=== PATIENT | female | born 1980 | race Caucasian/White ===

== ENCOUNTER 2018-08-13 01:43 | Outpatient (CLI) | payer OTHER, SELFPAY ==
[2018-08-13 11:23] LABS: Abs Immature Grans 0.05 k/cumm (0.0-0.09); Absolute Basophil Count 0.02 k/cumm (0.0-0.2); Absolute Eosinophil Count 0.22 k/cumm (0.0-0.7); Absolute Lymphocyte Count 2.39 k/cumm (1.2-3.4); Absolute Monocyte Count 0.45 k/cumm (0.11-0.7); Absolute Neutrophil Count 6.23 k/cumm (1.2-6.7); Basophils % 0.2; Eosinophils % 2.4; HCT 35.1 % (36.0-46.0); HGB 12.3 g/dL (12.0-15.5); Immature Grans % 0.5; Lymphocytes % 25.5; Mean Corpuscular Hemoglobin 34.3 pg (27.0-33.0); Mean Corpuscular Volume 97.8 fL (80-95); Mean Platelet Volume 10.1 fL (8.0-11.0); Monocytes % 4.8; Neutrophils % 66.6; Platelet Count 240 x1000/uL (130-400); RBC 3.59 m/cumm (4.00-5.20); RBC Distribution Width 17.1 % (11.7-14.6); White Blood Cell Count 9.36 k/cumm (4.4-10.8)
[2018-08-13 12:02] LABS: C-Reactive Protein 0.24 mg/dL (0.0-0.3); Vitamin B12 365 pg/mL (193-986)
== END 2018-08-13 02:03 ==
PROVIDERS: PCP Nurse Practitioner Family; Visit Provider Emergency Medicine
DX: G43.009 Migraine without aura, not intractable, without status migrainosus (principal)
CPT/HCPCS: 36415; 82607; 85025; 86140

== ENCOUNTER 2018-09-11 00:22 | Outpatient (CLI) | payer OTHER, SELFPAY ==
--- NOTE | 2018-09-11 15:44 | DI.MRI_ITS ---
SYMPTOM/DIAGNOSIS: SEIZURE LIKE ACTIVITY, ATYPICAL MIGRAINE WITHOUT AURA, G43.009 BRAIN MRI: T 2 sagittal, T 1, T 2, FLAIR, diffusion and gradient echo axial as well as T 2 coronal sequences were performed. No intracranial hemorrhage, mass or infarct is seen. The ventricles are normal in size. The orbits, pituitary, sinuses and mastoid air cells are unremarkable. The vascular flow voids appear intact. IMPRESSION: Negative MRI of the brain.
== END 2018-09-11 00:42 ==
PROVIDERS: PCP Nurse Practitioner Family; Visit Provider Emergency Medicine
DX: G43.009 Migraine without aura, not intractable, without status migrainosus (principal)
CPT/HCPCS: 70551

== ENCOUNTER 2018-10-30 11:00 | Outpatient (CLI) | payer OTHER, SELFPAY | END 2018-10-30 11:20 | PROVIDERS: PCP Nurse Practitioner Family; Visit Provider Psychiatry & Neurology Neurology | DX: F41.9 Anxiety disorder, unspecified (principal); G43.109 Migraine with aura, not intractable, without status migrainosus; R40.4 Transient alteration of awareness | CPT/HCPCS: 99215 ==

== ENCOUNTER 2018-12-24 16:13 | Outpatient (REF) | payer OTHER, SELFPAY ==
--- NOTE | 2018-12-24 15:40 | PAPFT_PTH ---
PATIENT: Stephanie Blank LOC: [facility] U#:[id number] AGE/SX: 38/F ROOM: RE12/24/[address]: Reva Haddad : 1980 BED: DIS: 12/24/2018 SPEC #: [id number] RECD: 12/24/18 17:53 STATUS: GRACIE RECassia #: [id number] YONAS: 12/24/18 15:[address]: Reva Haddad DEPT: [facility] Cytology RECD BY: Renetta Montoya ENTERED: 12/24/18 17:53 SP TYPE: PAPFT ELODIA DR: Ledy Thompson, PROJ ENGINEER Tissues: 1 - CX/ENDOCX FOR PAP SMEARS Procedures: PAP THIN PREP/UVM Screening HPV DNA PROBE Comments: [id number]
== END 2018-12-24 16:33 ==
LOC: LBN 16:13
PROVIDERS: PCP Nurse Practitioner Family; Visit Provider Obstetrics & Gynecology Gynecology
DX: Z12.4 Encounter for screening for malignant neoplasm of cervix (principal); Z11.51 Encounter for screening for human papillomavirus (HPV)
CPT/HCPCS: 88142; 87624

== ENCOUNTER 2020-01-19 20:35 | Outpatient (REF) | payer OTHER, SELFPAY ==
[2020-01-19 21:33] LABS: Abs Immature Grans 0.01 k/cumm (0.0-0.09); Absolute Basophil Count 0.02 k/cumm (0.0-0.2); Absolute Eosinophil Count 0.16 k/cumm (0.0-0.7); Absolute Lymphocyte Count 2.99 k/cumm (1.2-3.4); Absolute Monocyte Count 0.44 k/cumm (0.11-0.7); Absolute Neutrophil Count 5.83 k/cumm (1.2-6.7); Basophils % 0.2; Eosinophils % 1.7; HGB 12.3 g/dL (12.0-15.5); Immature Grans % 0.1 %; Lymphocytes % 31.6; Mean Corp. HGB Concentration 34.2 g/dL (32.0-36.0); Mean Corpuscular Hemoglobin 33.1 pg (27.0-33.0); Mean Corpuscular Volume 96.8 fL (80-95); Mean Platelet Volume 11.2 fL (8.0-11.0); Monocytes % 4.7; Neutrophils % 61.7; Platelet Count 291 x1000/uL (130-400); RBC 3.72 m/cumm (4.00-5.20); RBC Distribution Width 16.6 % (11.7-14.6); White Blood Cell Count 9.45 k/cumm (4.4-10.8)
[2020-01-19 22:06] LABS: ALT 18 U/L (14-59); AST 14 U/L (15-37); Albumin 4.4 g/dL (3.4-5.0); Alkaline Phosphatase 60 U/L (46-116); Anion Gap 11.3 mmol/L (3-11); BUN 9 mg/dL (7-18); CO2 24.7 mmol/L (21.0-32.0); CREATININE 0.75 mg/dL (0.55-1.02); Calcium 9.2 mg/dL (8.5-10.1); Calculated LDL 46 mg/dL (<100); Chloride 104 mmol/L (98-107); Cholesterol 133 mg/dL (<200); Folate 11.6 ng/mL (8.6-20.0); Glucose 84 mg/dL (74-106); HDL Cholesterol 28 mg/dL (40-60); Sodium 140 mmol/L (136-145); Total Protein 7.3 g/dL (6.4-8.2); Triglyceride 299 mg/dL (<150); Vitamin B12 268 pg/mL (193-986)
== END 2020-01-19 20:55 ==
LOC: LBN 20:35
PROVIDERS: PCP Nurse Practitioner Family; Visit Provider Nurse Practitioner Family
DX: Z00.00 Encounter for general adult medical examination without abnormal findings (principal); D53.9 Nutritional anemia, unspecified
CPT/HCPCS: 80053; 80061; 82607; 82746; 85025

== ENCOUNTER 2020-05-31 08:33 | Emergency (ER) | payer OTHER, SELFPAY ==
[2020-05-31 08:38] VITALS: BP 106/48; PULSE 91; TEMP 36.7; O2SAT 96
--- NOTE | 2020-05-31 08:45 | DI.US_ITS ---
EXAM: US LOWER EXTREMITY VENOUS RT CLINICAL HISTORY: trauma, increasing pain, r/o DVT TECHNIQUE: Right lower extremity venous ultrasound performed using grayscale, color-flow, and spectr al Doppler analysis. COMPARISON: No exams were available for comparison FINDINGS: The right common femoral, femoral and popliteal veins demonstrate normal compressibility, augmentatio n, and color Doppler. The posterior tibial veins are patent. The saphenofemoral junction is unremark able. There is no evidence of a Ortega cyst. The soft tissues are unremarkable. IMPRESSION: No DVT. DATA REPOSITORY:
--- NOTE | 2020-05-31 08:45 | DI.RAD_ITS ---
EXAM: XR TIB/FIB RT CLINICAL HISTORY: trauma, anterior tibia pain. TECHNIQUE: 2D digital imaging was performed. COMPARISON: No exams were available for comparison FINDINGS: BONES: No acute fracture is present. No bony destructive lesion is seen. Visualized portion of knee a nd ankle joints are unremarkable. SOFT TISSUE: Normal. IMPRESSION: Unremarkable radiographs of the right tibia and fibula. DATA REPOSITORY: RADIATION DOSE DELIVERED:
--- NOTE | 2020-05-31 08:47 | ED.GENADUL_ITS ---
Discharge Plan Disposition Patient Disposition: HOME Condition: Stable Discharge Details Clinical Impression: Leg wound, right Primary Care Provider: Ledy Thompson ED Provider: Winifred Kaufman Home Meds and New Rx's Prescriptions: New doxycycline hyclate 100 mg tablet 100 mg PO BID Qty: 19 RF: 0 No Action nicotine 14 mg/24 hr patch 24 hour 14 mg Transdermal DAILY Qty: 90 RF: 4 Mirena 20 mcg/24 hours (5 yrs) 52 mg intrauterine device 1 device IY ONCE RF: 0 cyanocobalamin (vitamin B-12) 1,000 mcg capsule 1,000 mcg PO DAILY Qty: 90 RF: 4 folic acid 1 mg tablet 1 mg PO DAILY Qty: 90 RF: 4 Discharge Instructions Instructions: Acute Wounds (ED) Additional Instructions: Please return immediately to the emergency department if you develop any new or worsening symptoms, if your condition does not improve as expected, or if you become otherwise concerned. It is extremely important that you call soon as possible to make an appointment to be seen in follow-up for this visit by your primary care doctor. Referrals: Ledy Thompson, BIBI [Primary Care Provider] - Discharge Data Discharge Date/Time-TO BE ENTERED AT DEPARTURE: 05/31/20 10:30 Medical Decision Making Stephanie Blank is a 39-year-old woman without reported history of major medical problems who presented to the emergency department with right lower leg pain worsening since sustaining injury from impact to corner of one sandbox 5 days ago. On exam patient is well and nontoxic-appearing. Significant tenderness palpation of the anterior midshaft tibia and area skin wound. Full range of motion knee and ankle. Concern for possible fracture, DVT vs contusion. Possible mild early cellulitis. Exam/history is not consistent with osteomy elitis, myositis, sepsis, compartment syndrome, significant injury of the right ankle/foot/knee/femur/hip. Plan for x-rays, ultrasound. X-rays and ultrasound negative. Plan for doxycycline. I had a lengthy discussion with Patient regarding return to emergency department precautions, home care, and importance of outpatient follow-up. Pt verbalizes understanding of the plan and is amenable. Patient discharged to home with clear plan for outpatient follow-up. All questions were answered. Disposition decision was made weighing the risks and benefits of hospitalization versus outpatient treatment, the risk for further decompensation, and the patient's wishes. Medical Records Medical records reviewed: Yes I reviewed the patient's medical records. Imaging Data Radiologic Study: Attestation: I personally reviewed and interpreted this imaging study as follows: Radiologist's impression: EXAM: XR TIB/FIB RT CLINICAL HISTORY: trauma, anterior tibia pain. TECHNIQUE: 2D digital imaging was performed. COMPARISON: No exams were available for comparison FINDINGS: BONES: No acute fracture is present. No bony destructive lesion is seen. Visualized portion of knee and ankle joints are unremarkable. SOFT TISSUE: Normal. IMPRESSION: Unremarkable radiographs of the right tibia and fibula. EXAM: US LOWER EXTREMITY VENOUS RT CLINICAL HISTORY: trauma, increasing pain, r/o DVT TECHNIQUE: Right lower extremity venous ultrasound performed using grayscale, color-flow, and spectral Doppler analysis. COMPARISON: No exams were available for comparison FINDINGS: The right common femoral, femoral and popliteal veins demonstrate normal compressibility, augmentation, and color Doppler. The posterior tibial veins are patent. The saphenofemoral junction is unremarkable. There is no evidence of a Ortega cyst. The soft tissues are unremarkable. IMPRESSION: No DVT. HPI General Mode of arrival: ambulatory . Date/Time Provider Initiated Documentation: 05/31/20 08:35 . Limitations to Documentation: no limitations . Information obtained by: patient, RN notes reviewed and old records reviewed . HPI Narrative: Stephanie Blank is a is a 39-year-old woman without reported history of major medical problems who presents to the emergency department with right lower leg pain. Patient reports that 5 days ago she was chasing her puppy outside in her yard and sustained an injury to the right lower leg. Patient reports that she was running downhill when she hit her right lower leg on the corner of her daughter's wooden sandbox. Patient reports that she fell to the ground at the time, but did not have injury other than to the right lower leg. She did not hit her head, no loss of consciousness. Patient reports that she has pain at the site of the wound, and pain that radiates down her moore. Patient reports that pain has been worsening since the time of the injury. She has been bearing weight on the right leg, which increases pain. She denies any other pain. She denies drainage from skin wound. No fever, cough, shortness of breath, vomiting, diarrhea, numbness, weakness. No other skin wound. Patient reports that she feels otherwise well and in her usual state of health. Related Data Home Medications Medication Instructions Recorded Confirmed levonorgestrel 20 mcg/24 hours (6 1 device IY ONCE 12/23/18 05/31/20 yrs) 52 mg intrauterine device nicotine 14 mg/24 hr daily 14 mg TRANSDERMAL DAILY #90 each 01/19/20 05/31/20 transdermal patch cyanocobalamin (vitamin B-12) 1,000 mcg PO DAILY #90 cap 01/22/20 05/31/20 1,000 mcg capsule folic acid 1 mg tablet 1 mg PO DAILY #90 tab 01/22/20 05/31/20 doxycycline hyclate 100 mg PO BID #19 tab 05/31/20 Previous Rx's Medication Instructions Recorded nicotine 14 mg/24 hr daily 14 mg TRANSDERMAL DAILY #90 each 01/19/20 transdermal patch cyanocobalamin (vitamin B-12) 1,000 mcg PO DAILY #90 cap 01/22/20 1,000 mcg capsule folic acid 1 mg tablet 1 mg PO DAILY #90 tab 01/22/20 doxycycline hyclate 100 mg PO BID #19 tab 05/31/20 Allergies Allergy/AdvReac Type Severity Reaction Status Date / Time amoxicillin Allergy vomiting/hi Unverified 05/31/20 08:45 ves Penicillins Allergy familial Unverified 05/31/20 08:45 reaction bupropion HCl AdvReac Unknown Unverified 05/31/20 08:45 [From Wellbutrin] hydrocodone bitartrate AdvReac Nausea Unverified 05/31/20 08:45 [From Vicodin] General Stated Complaint: Orthopedic SHANA: 3 Review of Systems Narrative: Constitutional: denies fevers Eyes: denies eye pain ENT: denies ear pain, dental pain, sore throat Cardiovascular: denies chest pain, edema Respiratory: denies SOB, cough GI: denies abdominal pain, vomiting, diarrhea : denies flank pain MSK: denies back pain, neck pain, arthralgias, myalgias Skin: Reports skin wound as per HPI Neuro: denies headaches, numbness, weakness, reports intermittent tingling in right toes PENDING SALE TO [facility] Medical History (Updated 05/31/20 @ 10:18 by Winifred Kaufman MD) Abnormal Papanicolaou smear of cervix with positive human papilloma virus (HPV) test 2012 ASCUS + HPV. Colpo directed bx CIN1. 05/2014 Colpo CIN1. 2014 ASCUS + HPV. 09/3014 colpo directed bx - benign. 08/2015 Nl Pap. + HR HPV. 10/20/16 colpo directed bx NING 1. 2017. Nl Pap/Neg HPV. Cigarette smoker Depressive disorder Generalized anxiety disorder IUD (intrauterine device) in place (09/21/15) Mirena IUD inserted 09/21/15 String short. Verified by office hysteroscopy Macrocytic anemia [place] [facility] [place] Needs chronic B12 replacement. Migraine headache with aura Splenomegaly Incidental finding on CT, mild, asymptomatic Vitamin B 12 deficiency Surgical History History of section History of hysteroscopy (~2010) For IUD retrieval S/P cholecystectomy (11/28/16) Family History Mother Hyperlipidemia Hypertension Cervical cancer Father No problems noted. Brother Hyperlipidemia Stroke Hypertension Brother No problems noted. Son Asthma Daughter No problems noted. Maternal Grandfather Alcohol abuse Stroke Heart disease Maternal Grandmother Colon cancer Alcohol abuse Hypertension Hyperlipidemia Type 2 diabetes mellitus Paternal Grandfather Alcohol abuse Paternal Grandmother Stroke Neoplasm Unknown type Social History Smoking/Tobacco Use Status: Current-Occasional Tobacco Type: cigarettes Smoking risk assessment performed?: Yes Alcohol Intake: current Alcohol Intake frequency: holidays/special occasions only Drug use: Never Substance use type: does not use Household members: children and other Details: Tammy Benjamin (employed [employer]) S - Phu, Lashanda Goldstein Housing: house Number of Children: 2 current occupation: [employer] at Pets and animals: Yes Pets and animals: cat(s) and dog(s) What type of physical activity do you participate in: none Special carlos eduardo needs: No Seatbelt use: always Do you feel safe at home: Yes Do you feel safe in your relationship?: Yes Additional Social history: 2005. PCD twin delivery. F - anacephalic Airam. shortly after . Viable twin 'Phu'. 2013. [facility] Dayami Goldstein Female Reproductive History Menstrual control method: progestin IUCD (2016) History History 2 Para Hx # Term Pregnancies 2 Multiple births Hx # Pregnancies Ectopic pregnancies AB induced Hx Number of Living Children 2 AB spontaneous Exam Narrative Exam Narrative: Constitutional: well and [id number], pleasant, conversing normally HENT: head atraumatic/normocephalic/normal inspection, mucous membranes moist Eyes: conjunctiva normal, sclera normal, pupils 3mm b/l Neck: no stridor, normal ROM, trachea midline Resp: normal work of breathing, speaking in full sentences Cardio: normal rate, normal rhythm Skin: warm, dry, normal color, no rash Neuro: alert, not altered, grossly non-focal, normal tone Ext: no edema, right anterior lower leg with 4 cm skin wound over the mid shaft tibia with central mild purulence, no drainage, no surrounding erythema, significant bony tenderness palpation of the tibia surrounding wound without crepitus or induration, no posterior calf tenderness to palpation, compartments soft, full range of motion right ankle and knee, DP pulse intact, sensation right toes and foot intact Psych: normal mood, normal affect, normal behavior Course Vital Signs Vital signs: Vital Signs Temperature 36.7 C 05/31/20 08:38 Pulse 91 H 05/31/20 08:38 Blood Pressure 106/48 L 05/31/20 08:38 Pulse Oximetry 96 05/31/20 08:38 Temperature 36.7 C 05/31/20 08:38 Temperature Source Temporal Artery Scan 05/31/20 08:38 Pulse 91 H 05/31/20 08:38 Respiratory Effort Non-Labored 05/31/20 08:43 Blood Pressure 106/48 L 05/31/20 08:38 Blood Pressure Position Sitting 05/31/20 08:38 Pulse Oximetry 96 05/31/20 08:38 Oxygen Delivery Method Room Air 05/31/20 08:38 Oxygen Flow Rate 0 05/31/20 08:38 Pain Level 5 05/31/20 08:38
[2020-05-31] MEDS: Doxycycline Hyclate 100 MG CAP PO (10:13)
[2020-05-31] MEDS: Bacitracin 1 PACKET TP (10:21)
== END 2020-05-31 10:30 | disposition home or self-care (01) ==
PROVIDERS: Emergency Provider Student in an Organized Health Care Education/Training Program; PCP Nurse Practitioner Family
DX: S81.811A Laceration without foreign body, right lower leg, initial encounter (principal); W22.09XA Striking against other stationary object, initial encounter
CPT/HCPCS: 90471; 99284; 73590; 93971

== ENCOUNTER 2020-11-29 02:44 | Outpatient (CLI) | payer OTHER, SELFPAY ==
[2020-11-29 11:44] LABS: Source Nasal/Nares
[2020-11-29 21:13] LABS: COVID-19 PCR Negative (Negative)
== END 2020-11-29 02:45 | disposition home or self-care (01) ==
LOC: LBO 02:44
PROVIDERS: PCP Nurse Practitioner Family; Visit Provider Obstetrics & Gynecology Gynecology
DX: Z20.822 Contact with and (suspected) exposure to COVID-19 (principal); Z01.818 Encounter for other preprocedural examination
CPT/HCPCS: 87635

== ENCOUNTER 2020-11-29 03:18 | Outpatient (CLI) | payer OTHER, SELFPAY ==
[2020-11-29 09:26] LABS: HCT 34.3 % (36.0-46.0); HGB 11.9 g/dL (11.2-15.7); MCH 33.4 pg (27.0-33.0); MCHC 34.7 % (32.0-36.0); MCV 96.3 fL (80-95); Platelet Count 212 10^3/uL (130-400); RBC 3.56 10^6/uL (3.93-5.22); RDW 16.8 % (11.7-14.6); RDW-SD 59.1 fL
== END 2020-11-29 03:19 | disposition home or self-care (01) ==
LOC: LBO 03:18
PROVIDERS: PCP Nurse Practitioner Family; Visit Provider Obstetrics & Gynecology Gynecology
DX: Z97.5 Presence of (intrauterine) contraceptive device (principal); Z01.818 Encounter for other preprocedural examination; Z01.812 Encounter for preprocedural laboratory examination
CPT/HCPCS: 36415; 85027; 86850; 86900; 86901

== ENCOUNTER 2020-12-01 08:13 | Day surgery (SDC) | payer OTHER, SELFPAY ==
[2020-12-01 08:32] VITALS: BP 92/56; PULSE 77; RESP 18; TEMP 36.7; O2SAT 98
--- NOTE | 2020-12-01 08:42 | ANES.PREOP_ITS ---
General Info Date of Service Date Performed: 12/01/20 Height: 5 ft Weight: 78.7 kg Body Mass Index (BMI): 33.8 Surgical Procedure: Operation Date: 12/01/20 10:10 Proposed Procedures Side Surgeon p HYSTEROSCOPIC RETRIVAL OF IUD/insertion of IUD Reva Haddad MD Meds Allergies and Home Medications Allergies Allergy/AdvReac Type Severity Reaction Status Date / Time amoxicillin Allergy vomiting/hi Unverified 12/01/20 08:42 ves Penicillins Allergy familial Unverified 12/01/20 08:42 reaction hydrocodone bitartrate AdvReac Severe Nausea Unverified 12/01/20 08:42 [From Vicodin] bupropion HCl AdvReac Unknown Other (See Unverified 12/01/20 08:42 [From Wellbutrin] Comment) Home Medication Medication Instructions Recorded levonorgestrel 20 mcg/24 hours (6 1 device IY ONCE 12/23/18 yrs) 52 mg intrauterine device nicotine 14 mg/24 hr daily 14 mg TRANSDERMAL DAILY #90 each 01/19/20 transdermal patch cyanocobalamin (vitamin B-12) 1,000 mcg PO DAILY #90 cap 01/22/20 1,000 mcg capsule folic acid 1 mg tablet 1 mg PO DAILY #90 tab 01/22/20 Current Visit Medications: Current Medications Generic Name Dose Route Start Last Admin Trade Name Freq PRN Reason Stop Dose Admin Ringer's Solution 1,000 mls @ 125 mls/hr 12/01/20 06:00 IV 12/30/20 23:59 INFUSION NAZANIN IV Miscellaneous Supplies 1 each 12/01/20 06:00 Iv Access IV 12/30/20 23:59 DIRECTED NAZANIN Sodium Chloride 0 ml 12/01/20 06:00 Normal Saline Flush 10 Ml Syr IV 12/30/20 23:59 PRN PRN Sodium Chloride 0 ml 12/01/20 06:00 Normal Saline 10 Ml Vial IJ 12/30/20 23:59 DIRECTED PRN Sterile Water 0 ml 12/01/20 06:00 Water,Injection,Sterile 10 Ml Vial IJ 12/30/20 23:59 DIRECTED PRN PFSH Active Problems Active Problems: Problem Status Onset Code Unsuccessful attempt to remove intrauterine device (IUD) Z53.8, Z97.5 Encounter for insertion of mirena IUD Z30.430 Shoulder pain M25.519 Obsessive-compulsive disorder, unspecified F42.9 Leg wound, right S81.801A Macrocytic anemia D53.9 Generalized anxiety disorder F41.1 Migraine headache with aura G43.109 Cigarette smoker F17.210 Medical History Medical History (Updated 12/01/20 @ 09:40 by Reva Haddad MD) Abnormal Papanicolaou smear of cervix with positive human papilloma virus (HPV) test 2012 ASCUS + HPV. Colpo directed bx CIN1. 05/2014 Colpo CIN1. 2014 ASCUS + HPV. 09/3014 colpo directed bx - benign. 08/2015 Nl Pap. + HR HPV. 10/20/16 colpo directed bx NING 1. 2017. Nl Pap/Neg HPV. Cigarette smoker Depressive disorder Generalized anxiety disorder IUD (intrauterine device) in place (09/21/15) Mirena IUD inserted 09/21/15 String short. Verified by office hysteroscopy Macrocytic anemia Normal bone marrow biopsy 01/2018 at [facility] [place]. Needs chronic B12 replacement. Migraine headache with aura Splenomegaly Incidental finding on CT, mild, asymptomatic Unsuccessful attempt to remove intrauterine device (IUD) Vitamin B 12 deficiency Surgical History Surgical History History of section History of hysteroscopy (~2010) For IUD retrieval S/P cholecystectomy (11/28/16) Tobacco Smoking/Tobacco Use Status: Current every day Tobacco Type: cigarettes Smoking cigarettes per day: 5 Alcohol Alcohol Intake: current Alcohol intake frequency: holidays/special occasions only Substance Use Substance use: Never Substance use type: does not use Prental History History 2 Para Hx # Term Pregnancies 2 Multiple births Hx # Pregnancies Ectopic pregnancies AB induced Hx Number of Living Children 2 AB spontaneous Vital Signs and Lab Results Vital Signs Most Recent Vital Signs in EMR: Most Recent Vital Signs Temp Pulse Resp BP Pulse Ox 36.7 C 77 18 92/56 L 98 12/01/20 08:32 12/01/20 08:32 12/01/20 08:32 12/01/20 08:32 12/01/20 08:32 Lab Results Blood Type / Crossmatch: Patient ABO/Rh A Positive 11/29/20 09:12 11/29/20 Antibody Screen Negative 11/29/20 09:12 11/29/20 Complete Blood Count: White Blood Count 9.10 10^3/uL (4.4-10.8) 11/29/20 09:12 11/29/20 Red Blood Count 3.56 10^6/uL (3.93-5.22) L 11/29/20 09:12 11/29/20 Hemoglobin 11.9 g/dL (11.2-15.7) 11/29/20 09:12 11/29/20 Hematocrit 34.3 % (36.0-46.0) L 11/29/20 09:12 11/29/20 Platelet Count 212 10^3/uL (130-400) 11/29/20 09:12 11/29/20 Complete Metabolic Panel: No Data to Display Liver Function Panel: No Data to Display Coagulation Panel: No Data to Display Cardiac Panel: No Data to Display Arterial Blood Gas: No Data to Display Venous Blood Gas: No Data to Display Pancreas Panel: No Data to Display Thyroid Panel: No Data to Display Infectious Disease: Coronavirus (COVID-19)(PCR) Negative (Negative) 11/29/20 08:28 11/29/20 Coronavirus 2019 Source Nasal/nares 11/29/20 08:28 11/29/20 Blood Cultures: No Data to Display Toxicology Panel: No Data to Display Panel: No Data to Display Anesthesia Assessment and Plan Anesthesia History Personal History: PONV Family History: No Family History of Anesthesia Complications Exercise Tolerance Exercise Tolerance: Metabolic Equivalents>4 Cardiac & Pulmonary Exam Cardiac Exam: Normal S1/S2 Heart Sounds Pulmonary Exam: Clear Bilateral Breath Sounds Airway Exam Known Difficult Airway: No Mallampati Class: 2 Mouth Opening: Normal (> 3cm) Thyromental Distance: Greater than 3 cm Neck Range of Motion: Full ROM Neck Circumference: Normal Teeth Condition: Normal Dentition ASA Classification ASA Score: ASA 2 Emergency Case?: No NPO Status NPO Status: NPO Clears >2 hours, Solids >8 hours Status Status: Not Relevant due to Medical History Anesthesia Plan Resuscitation Status: Full Code Anesthesia Technique: General Anesthesia Airway Planned: Natural Airway Monitors Used: Standard Monitors Preoperative Comments:: previous hull 2 grade 1, easy mask
[2020-12-01] MEDS: Lactated Ringers 1,000 ML 125 ML IV (09:11)
--- NOTE | 2020-12-01 09:32 | HPE_ITS ---
Date of service: 12/01/20 Time of Service: 09:32 Assessment and Plan Assessment and plan (1) IUD (intrauterine device) in place: Status: Inactive (2) Preop examination: Status: Acute Assessment and plan: Updated exam performed. Reviewed informed consent with pt. Questions answered. History of Present Illness History of Present Illness Chief Complaint: missing IUD string. unable to retrieve IUD in office Narrative: Patient is a 40-year-old G2, P2 female who presents for a hysteroscopic retrieval of Mirnea IUD. An attempted office retrieval of a Mirena IUD using an Ensosee device on 10/13/20 was unsuccessful. Pt was unable to tolerate the procedure. Uterus was not visualized by Endosee. Pt wishes to have another Mirena inserted at the time of Mirena retrieval. . GynHx 09/21/15. Mirena IUD inserted. Follow up surveillance revealed no string visible. Office hysteroscopy showed IUD at the fundus with string curled at the fundus. 12/2018. Pap/HVP Nl/Neg. Review of Systems All systems reviewed & are unremarkable except as noted in HPI and below Genitourinary Genitourinary: Reports system reviewed and no additional complaints, except as documented and Reports amenorrhea [facility] Medical History (Updated 12/01/20 @ 09:40 by Reva Haddad MD) Abnormal Papanicolaou smear of cervix with positive human papilloma virus (HPV) test 2012 ASCUS + HPV. Colpo directed bx CIN1. 05/2014 Colpo CIN1. 2014 ASCUS + HPV. 09/3014 colpo directed bx - benign. 08/2015 Nl Pap. + HR HPV. 10/20/16 colpo directed bx NING 1. 2017. Nl Pap/Neg HPV. Cigarette smoker Depressive disorder Generalized anxiety disorder IUD (intrauterine device) in place (09/21/15) Mirena IUD inserted 09/21/15 String short. Verified by office hysteroscopy Macrocytic anemia Normal bone marrow biopsy 01/2018 at [facility] [place]. Needs chronic B12 replacement. Migraine headache with aura Splenomegaly Incidental finding on CT, mild, asymptomatic Unsuccessful attempt to remove intrauterine device (IUD) Vitamin B 12 deficiency Surgical History History of section History of hysteroscopy (~2010) For IUD retrieval S/P cholecystectomy (11/28/16) Family History Mother Hyperlipidemia Hypertension Cervical cancer Father No problems noted. Brother Hyperlipidemia Stroke Hypertension Brother No problems noted. Son Asthma Daughter No problems noted. Maternal Grandfather Alcohol abuse Stroke Heart disease Maternal Grandmother Colon cancer Alcohol abuse Hypertension Hyperlipidemia Type 2 diabetes mellitus Paternal Grandfather Alcohol abuse Paternal Grandmother Stroke Neoplasm Unknown type Social History Smoking/Tobacco Use Status: Current every day Tobacco Type: cigarettes Smoking risk assessment performed?: Yes Alcohol Intake: current Alcohol Intake frequency: holidays/special occasions only Drug use: Never Substance use type: does not use Household members: children and other Details: H - Cassidy (employed [employer]) S - [place] Housing: house Number of Children: 2 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 PCD twin delivery. F - anacephalic Airam. shortly after . Viable twin 'Phu'. 2013. [facility] Dayami Goldstein Female Reproductive History Menstrual control method: progestin IUCD History History 2 Para Hx # Term Pregnancies 2 Multiple births Hx # Pregnancies Ectopic pregnancies AB induced Hx Number of Living Children 2 AB spontaneous Meds Allergies and Home Medications Allergies Allergy/AdvReac Type Severity Reaction Status Date / Time amoxicillin Allergy vomiting/hi Unverified 12/01/20 08:42 ves Penicillins Allergy familial Unverified 12/01/20 08:42 reaction hydrocodone bitartrate AdvReac Severe Nausea Unverified 12/01/20 08:42 [From Vicodin] bupropion HCl AdvReac Unknown Other (See Unverified 12/01/20 08:42 [From Wellbutrin] Comment) Home Medications Medication Instructions Recorded Confirmed Type levonorgestrel 20 mcg/24 hours (6 1 device IY ONCE 12/23/18 12/01/20 History yrs) 52 mg intrauterine device nicotine 14 mg/24 hr daily 14 mg TRANSDERMAL DAILY #90 each 01/19/20 12/01/20 Rx transdermal patch cyanocobalamin (vitamin B-12) 1,000 mcg PO DAILY #90 cap 01/22/20 12/01/20 Rx 1,000 mcg capsule folic acid 1 mg tablet 1 mg PO DAILY #90 tab 01/22/20 12/01/20 Rx Exam Const General: well developed Nutritional Appearance: overweight Orientation: alert, awake and oriented x3 Resp Effort & Inspection: normal respiratory effort Auscultation: clear to auscultation bilaterally Cardio Rate: regular rate Rhythm: regular rhythm GI Inspection: normal to inspection Palpation: no hepatosplenomegaly, no masses and nontender General: deferred Skin General skin exam: no rashes or lesions noted (tattoos present) Extrem General: normal to inspection Psych Appearance: grossly normal Mental Status: mental status grossly normal Speech and Movement: speech and movement normal Mood: congruent mood Results Last Vital Signs Temp 98.1 F 12/01/20 08:32 Pulse 77 12/01/20 08:32 Resp 18 12/01/20 08:32 BP 92/56 L 12/01/20 08:32 Pulse Ox 98 12/01/20 08:32 COVID-19 Screening Have you, or household traveled for leisure in last 14 days?: No Had IN PERSON contact w/suspected or confirmed C-19 person: No
[2020-12-01 10:43] VITALS: BMI 33.8
[2020-12-01] MEDS: Lidocaine 1% Multi-Dose 50 ML VIAL (11:54)
[2020-12-01 12:12] VITALS: BP 81/50; PULSE 70; RESP 16; TEMP 36; O2SAT 96
--- NOTE | 2020-12-01 12:22 | W.PM.DSUDISC ---
Discharge Plan Disposition Patient Disposition: HOME Condition: Fair Discharge Details Attending Provider: Reva Haddad Primary Care Provider: Ledy Thompson Home Meds and New Rx's Prescriptions: No Action nicotine 14 mg/24 hr patch 24 hour 14 mg Transdermal DAILY Qty: 90 RF: 4 Mirena 20 mcg/24 hours (5 yrs) 52 mg intrauterine device 1 device IY ONCE RF: 0 cyanocobalamin (vitamin B-12) 1,000 mcg capsule 1,000 mcg PO DAILY Qty: 90 RF: 4 folic acid 1 mg tablet 1 mg PO DAILY Qty: 90 RF: 4 Discharge Instructions Additional Instructions: The new Mirena IUD is in place. The IUD strings are longer in her previous IUD. The plan is to shorten the at the time of her follow-up visit in [address] [facility] appointment for string check in 1 month. You will have some bloody vaginal discharge over the next few days. It is okay if you have a period within the next few weeks. Your body is adjusting to the new Mirnea IUD. Stand Alone Forms: DSU Post Gynecology Surgery Activity:: Activity as Tolerated Diet:: As Tolerated Discharge Orders Discharge Orders: Discharge Order (Routine); Ordered 12/01/20 Ordered By: Reva Haddad DS: Diagnosis Discharge Diagnosis (1) IUD (intrauterine device) in place: Status: Inactive (2) Preop examination: Status: Deleted (3) Remove/insert IUD: Status: Acute
[2020-12-01] MEDS: oxyCODONE 5 mg/Acetaminophen 325 mg TAB PO (12:34)
--- NOTE | 2020-12-01 12:49 | W.ANESPOSTOP ---
Postoperative Evaluation Date, Time and Location Date Performed: 12/01/20 Time Performed: 12:49 Patient Location: Day Surgery Unit Vital Signs Most Recent Imported Vital Signs: Most Recent Vital Signs Temp Pulse Resp BP Pulse Ox 36.0 C L 70 16 81/50 L 96 12/01/20 12:12 12/01/20 12:12 12/01/20 12:12 12/01/20 12:12 12/01/20 12:12 Pain Score Most Recent Pain Score: Most Recent Pain Score Pain Level 0 12/01/20 12:12 Assessment Mental Status: Awake (Alert & Oriented to Patient Baseline) Airway and Respiratory Function: Patent airway with normal (patient baseline) respiratory exam Cardiovascular Function: Hemodynamically Stable Hydration Status: Adequately Hydrated Nausea & Vomiting: No Nausea or Vomiting Pain: Pt. Denies Any Pain Peripheral Nerve Block: Patient did not receive a nerve block
[2020-12-01 12:55] VITALS: BP 102/68; PULSE 53; RESP 18; TEMP 36.2; O2SAT 98
--- NOTE | 2020-12-01 16:30 | W.PM.OP ---
Date of service: 12/01/20 Time of Service: 16:30 Operative Note Operative Note DATE OF PROCEDURE: 12/01/20 PRE-OP DIAGNOSIS: Missing IUD string POST-OP DIAGNOSIS: same PROCEDURE: Hysteroscopic retrieval of Mirena IUD and reinsertion of a new Mirena IUD SURGEON: Reva Haddad ANESTHESIA TYPE: MAC Refer to Anesthesia Record ESTIMATED BLOOD LOSS: 0 PATHOLOGY: none sent COMPLICATIONS: None Patient was transported to: same day Patient's condition: stable Implants: Mirena IUD. Lot number: [id number]. Indications: Patient is a 40-year-old G2, P2 female who presents for a hysteroscopic retrieval of Mirnea IUD after the IUD strings had migrated to the uterine fundus and could not be reached. An attempted? office retrieval of a Mirena IUD using an Ensosee device on 10/13/20 was unsuccessful. Pt was unable to tolerate the procedure.? Findings: Intact Mirena IUD was located at the uterine fundus. It was removed intact. Procedure Description: Patient was brought to the operating room where she is placed in the dorsal supine position and monitored anesthesia care was administered. SCDs were placed. No antibiotics were required. A surgical timeout was performed. She was prepped and draped in the usual sterile fashion. A bivalve speculum is placed into the vagina and the anterior lip of the cervix was infiltrated with 0.25% Marcaine without epinephrine. Single-tooth tenaculum was used to grasp the anterior lip of the cervix and a paracervical block was performed with 0.25% Marcaine without epinephrine with 5 cc injected into the 4 and 8:00 paracervical spaces respectively. Then sequentially dilated to a maximum of 8 Hegar and a hysteroscope was introduced into the uterine cavity with normal saline as the distention medium. The Mirena IUD was located at the uterine fundus and hysteroscopic grasper was used to grasp the body of the IUD and delivered intact into the vagina. The IUD strings were attached. Hysteroscope was removed and a Mirena IUD was inserted to a depth of 9 cm, successfully deployed and the introducer removed. The Mirena IUD string was trimmed to length 2.5 inches. Tenaculum was removed from the anterior lip of the cervix and the tenaculum site was noted to be hemostatic. All instruments removed from the patient's vagina. She was placed in the dorsal supine position, awakened and transported to recovery area in stable condition. All sponge lap and needle counts are correct x2.
== END 2020-12-01 13:29 | disposition home or self-care (01) ==
PROVIDERS: PCP Nurse Practitioner Family; Visit Provider Obstetrics & Gynecology Gynecology
PROC: 0UDB8ZZ Extraction of Endometrium, Via Natural or Artificial Opening Endoscopic (ICD-10-PCS; CPT 58558; principal; 2020-12-01 10:00)
DX: T83.32XA Displacement of intrauterine contraceptive device, initial encounter (principal)
CPT/HCPCS: 58562; 58300; 81025; J1885; J2001; J2405; J2704

== ENCOUNTER 2020-12-22 10:40 | Outpatient (CLI) | payer OTHER, SELFPAY ==
[2020-12-23 14:58] LABS: COVID-19 RT-PCR UVMMC Result Negative (Negative)
== END 2020-12-22 10:41 | disposition home or self-care (01) ==
PROVIDERS: PCP Nurse Practitioner Family; Visit Provider Nurse Practitioner Family
DX: Z20.822 Contact with and (suspected) exposure to COVID-19 (principal)
CPT/HCPCS: U0003

== ENCOUNTER 2021-02-24 04:05 | Outpatient (CLI) | payer OTHER, SELFPAY ==
[2021-02-24 12:18] LABS: Abs Immature Grans 0.03 10^3/uL (0.0-0.06); Absolute Basophil Count 0.04 10^3/uL (0.0-0.2); Absolute Eosinophil Count 0.18 10^3/uL (0.0-0.7); Absolute Lymphocyte Count 2.44 10^3/uL (1.2-3.4); Absolute Monocyte Count 0.47 10^3/uL (0.1-0.8); Basophils % 0.4; Eosinophils % 1.7; HCT 33.3 % (36.0-46.0); HGB 11.3 g/dL (11.2-15.7); Immature Grans % 0.3; Lymphocytes % 23.3; MCH 33.8 pg (27.0-33.0); MCHC 33.9 % (32.0-36.0); MCV 99.7 fL (80-95); MPV 10.3 fL (8.0-11.0); Monocytes % 4.5; Neutrophils % 69.8; Nucleated RBC 0 %; Platelet Count 236 10^3/uL (130-400); RBC 3.34 10^6/uL (3.93-5.22); RDW 16.4 % (11.7-14.6); RDW-SD 59.2 fL; WBC 10.46 10^3/uL (4.4-10.8)
[2021-02-24 12:36] LABS: Hemoglobin A1C 3.9 % (<5.7)
[2021-02-24 12:56] LABS: Anion Gap 9.4 mmol/L (3-11); BUN 9 mg/dL (7-18); CO2 24.6 mmol/L (21.0-32.0); CREATININE 0.8 mg/dL (0.55-1.02); Calcium 8.7 mg/dL (8.5-10.1); Calculated LDL 48 mg/dL (<100); Chloride 107 mmol/L (98-107); Cholesterol 134 mg/dL (<200); Glucose 97 mg/dL (74-106); HDL Cholesterol 27 mg/dL (40-60); Potassium 4.1 mmol/L (3.5-5.1); Sodium 141 mmol/L (136-145); TSH (W/Ref FT4) 2.02 uIU/mL (0.36-3.74); Triglyceride 298 mg/dL (<150); Vitamin B12 347 pg/mL (193-986)
== END 2021-02-24 04:06 | disposition home or self-care (01) ==
PROVIDERS: PCP Nurse Practitioner Family; Visit Provider Nurse Practitioner Family
DX: D53.9 Nutritional anemia, unspecified (principal); E78.1 Pure hyperglyceridemia; R79.89 Other specified abnormal findings of blood chemistry
CPT/HCPCS: 36415; 80048; 80061; 82607; 83036; 84443; 85025

== ENCOUNTER 2022-03-27 19:35 | Outpatient (REF) | payer OTHER, SELFPAY | END 2022-03-27 19:36 | disposition home or self-care (01) | LOC: LBN 19:35 | PROVIDERS: PCP Nurse Practitioner Family; Visit Provider Physician Assistant | DX: J02.9 Acute pharyngitis, unspecified (principal) | CPT/HCPCS: 87070 ==

== ENCOUNTER 2022-04-13 16:17 | Outpatient (REF) | payer OTHER, SELFPAY ==
--- NOTE | 2022-04-13 16:00 | PAPFT_PTH ---
PATIENT: Stephanie Blank LOC: [facility] U#:[id number] AGE/SX: 41/F ROOM: RE04/13/[address]: Reva Haddad : 1980 BED: DIS: 04/13/2022 SPEC #: [id number] RECD: 04/13/22 17:54 STATUS: GRACIE RECassia #: [id number] YONAS: 04/13/22 16:[address]: Reva Haddad DEPT: [facility] Cytology RECD BY: Renetta Montoya ENTERED: 04/13/22 17:54 SP TYPE: PAPFT OTHR DR: Ledy Thompson, BETHANY Tissues: 1 - CX/ENDOCX FOR PAP SMEARS Procedures: PAP THIN PREP/UVM Screening HPV DNA PROBE Comments: [id number]
== END 2022-04-13 16:18 | disposition home or self-care (01) ==
LOC: LBN 16:17
PROVIDERS: PCP Nurse Practitioner Family; Visit Provider Obstetrics & Gynecology Gynecology
DX: Z12.4 Encounter for screening for malignant neoplasm of cervix (principal); Z11.51 Encounter for screening for human papillomavirus (HPV)
CPT/HCPCS: 88142; 87624

== ENCOUNTER 2022-04-19 02:57 | Outpatient (CLI) | payer OTHER, SELFPAY ==
[2022-04-19 09:27] LABS: HCT 34.8 % (36.0-46.0); MCH 33.1 pg (27.0-33.0); MCHC 34.5 % (32.0-36.0); MCV 96 fL (80-95); Platelet Count 249 10^3/uL (130-400); RBC 3.62 10^6/uL (3.93-5.22); RDW-SD 59.3 fL; WBC 11.52 10^3/uL (4.4-10.8)
[2022-04-19 13:34] LABS: Vitamin B12 310 pg/mL (193-986)
== END 2022-04-19 02:58 | disposition home or self-care (01) ==
LOC: LBO 02:57
PROVIDERS: Nurse Practitioner; PCP Nurse Practitioner Family; Visit Provider Obstetrics & Gynecology Gynecology
DX: D53.9 Nutritional anemia, unspecified (principal)
CPT/HCPCS: 36415; 85027; 82607

== ENCOUNTER 2022-05-19 13:06 | Outpatient (REF) | payer OTHER, SELFPAY | END 2022-05-19 13:07 | disposition home or self-care (01) | LOC: NCHCN 13:06 | PROVIDERS: PCP Nurse Practitioner Family; Visit Provider Physician Assistant | DX: J02.9 Acute pharyngitis, unspecified (principal) | CPT/HCPCS: 87070 ==

== ENCOUNTER 2022-08-20 19:24 | Emergency (ER) | payer OTHER, SELFPAY ==
[2022-08-20 19:29] VITALS: BP 119/62; PULSE 89; RESP 20; TEMP 36.6; O2SAT 97
--- NOTE | 2022-08-20 19:45 | DI.RAD_ITS ---
Exam(s) XR WRIST LT COMPLETE EXAM: XR WRIST LT COMPLETE CLINICAL HISTORY: pain. TECHNIQUE: 2D digital imaging was performed of the left wrist. Four images were obtained. Scaphoid , PA, oblique and lateral views were obtained. COMPARISON: No exams were available for comparison FINDINGS: BONES: No acute fracture is present. No bony destructive lesion is seen. JOINTS: The carpal bones are normally aligned. SOFT TISSUE: Normal. IMPRESSION: Unremarkable radiographs of the left wrist. DATA REPOSITORY: RADIATION DOSE DELIVERED:
--- NOTE | 2022-08-20 20:06 | ED.GENADUL_ITS ---
Discharge Plan Disposition Patient Disposition: Home Condition: Stable Discharge Details Clinical Impression: Pain, wrist Primary Care Provider: Ledy Thompson ED Provider: Jer Perkins Home Meds and New Rx's Prescriptions: Continued clotrimazole-betamethasone 1-0.05 % cream 1 applic topical BID 10 Days Qty: 15 2RF sertraline 25 mg tablet 50 mg PO DAILY Qty: 90 0RF Mirena 20 mcg/24 hours (5 yrs) 52 mg intrauterine device 1 device IY ONCE Label Comments: Inserted 09/21/15 cyanocobalamin (vitamin B-12) 1,000 mcg capsule 1,000 mcg PO DAILY Qty: 90 4RF Rx Instructions: Take 1 capsule daily Discharge Instructions Instructions: Wrist Sprain (ED) Additional Instructions: X-rays unremarkable. [id number] Tylenol and Motrin as directed for discomfort. Wear splint as needed, advance activity as tolerated. Rest, elevate, cool compresses every 2 hours for 20 minutes. Lastly, I am providing you with a referral to orthopedics if your symptoms or not improving with conservative measures over the next 7-10 days. 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 Denies any obvious trauma. Has taken Tylenol and Motrin sporadically over the past week. Clinically examination most consistent with inflammatory process, carpal tunnel syndrome, etc. Patient reports pain is worse with movement of the thumb. Will obtain x-ray and reassess X-ray unremarkable. Will place into a thumb spica-wrist splint, encourage anti-inflammatory therapy, and provide orthopedic referral if symptoms not improving with conservative measures. Standard discharge and return precautions were provided. Patient understands, is agreeable to this plan, and has no additional questions or concerns upon discharge. This documentation was generated using [employer] system, please disregard any oddities of phrase or misspellings. Medical Records Medical records reviewed: Yes I reviewed the patient's medical records. Imaging Data Radiologic Study: Attestation: I personally reviewed and interpreted this imaging study as follows: Imaging: X-Ray Radiologist's impression: PROCEDURE INFORMATION: Exam: XR Left Wrist Exam date and time: 08/20/2022 8:09 PM Age: 42 years old Clinical indication: Left; Patient HX: L wrist pain increasing, no known trauma, TECHNIQUE: Imaging protocol: Radiologic exam of the Left wrist. Views: 3 or more views. COMPARISON: [place] WHOLE BODY BONE SCAN 01/25/2018 12:13 PM FINDINGS: Bones/joints: Normal. Soft tissues: Normal. IMPRESSION: No acute findings. HPI General Mode of arrival: ambulatory . Date/Time Provider Initiated Documentation: 08/20/22 19:34 . Limitations to Documentation: no limitations . Information obtained by: patient . History of Present Illness 42 year old F presents to the emergency department with the chief complaint of L wrist pain, described as moderate, with intensity rated at 5. Quality is described as aching, and is localized to the left and upper extremity. Patient reports no radiation. Patient started experiencing this month(s) (3-4) and it has been constant. Immobilization improves symptom(s), Movement worsens symptoms . Patient notes no other symptoms.. Patient did receive the following treatments prior to arrival, other (Acetaminophen) Related Data Home Medications Medication Instructions Recorded Confirmed levonorgestrel 20 mcg/24 hours (8 1 device intrauterine ONCE 12/23/18 08/20/22 yrs) 52 mg intrauterine device (Mirena) cyanocobalamin (vitamin B-12) 1,000 mcg PO DAILY #90 caps 01/22/20 08/20/22 1,000 mcg capsule clotrimazole-betamethasone 1 1 applic topical BID 10 days #04/12/21 08/20/22 %-0.05 % topical cream grams sertraline 25 mg tablet 50 mg PO DAILY #90 tabs 07/29/22 08/20/22 Previous Rx's Medication Instructions Recorded cyanocobalamin (vitamin B-12) 1,000 mcg PO DAILY #90 caps 01/22/20 1,000 mcg capsule clotrimazole-betamethasone 1 1 applic topical BID 10 days #04/12/21 %-0.05 % topical cream grams sertraline 25 mg tablet 50 mg PO DAILY #90 tabs 07/29/22 Allergies Allergy/AdvReac Type Severity Reaction Status Date / Time amoxicillin Allergy vomiting/hi Unverified 05/19/22 09:11 ves Penicillins Allergy familial Unverified 05/19/22 09:11 reaction hydrocodone bitartrate AdvReac Severe Nausea Unverified 05/19/22 09:11 [From Vicodin] bupropion HCl AdvReac Unknown Other (See Unverified 05/19/22 09:11 [From Wellbutrin] Comment) General Stated Complaint: Orthopedic SAHNA: 3 Review of Systems Constitutional Constitutional: Denies fever(s) and Denies weakness Musculoskeletal Musculoskeletal: Reports arthralgias, Denies numbness, Reports stiffness and Reports tingling Integumentary/Breasts Skin/Breast: Denies rash Neurologic Neurologic: Denies numbness, Reports tingling and Denies weakness PFSH All Active Problems Pain, wrist (Acute) Rhinitis (Acute) Generalized anxiety disorder (Chronic) 03/2022. Rx with Sertraline. 07/2022. Sertraline 5omg/day. Obsessive-compulsive disorder, unspecified (Acute) Macrocytic anemia (Chronic) Normal bone marrow biopsy 01/2018 at [facility]. Needs chronic B12 replacement. Migraine headache with aura (Chronic) Cigarette smoker (Chronic) Medical History Abnormal Papanicolaou smear of cervix with positive human papilloma virus (HPV) test 2012 ASCUS + HPV. Colpo directed bx CIN1. 05/2014 Colpo CIN1. 2014 ASCUS + HPV. 09/3014 colpo directed bx - benign. 08/2015 Nl Pap. + HR HPV. 10/20/16 colpo directed bx NING 1. 2017. Nl Pap/Neg HPV. Depressive disorder Splenomegaly Incidental finding on CT, mild, asymptomatic Vitamin B 12 deficiency Surgical History History of section History of hysteroscopy (~2010) For IUD retrieval S/P cholecystectomy (11/28/16) Family History Mother Hyperlipidemia Hypertension Cervical cancer Father No problems noted. Brother Hyperlipidemia Stroke Hypertension Brother No problems noted. Son Asthma Daughter No problems noted. Maternal Grandfather Alcohol abuse Stroke Heart disease Maternal Grandmother Colon cancer Alcohol abuse Hypertension Hyperlipidemia Type 2 diabetes mellitus Paternal Grandfather Alcohol abuse Paternal Grandmother Stroke Neoplasm Unknown type Social History Smoking/Tobacco Use Status: Current every day Tobacco Type: cigarettes Tobacco: How many years used: 20 Quit status: considering quitting Smoking risk assessment performed?: Yes Alcohol Intake: former Drug use: Never Substance use type: does not use Caregiver/Support person: No Household members: spouse, children and other Details: H-Rajeev, S-Phu, D- Angelita. 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 Pets and animals: Yes Pets and animals: cat(s) and dog(s) Sexually active: Yes Do you think of yourself as: straight/heterosexual Current gender identity: female What is your relationship status?: How often do you talk on the phone with friends or family?: three or more times per week How often do you get together with friends or relatives?: once per week Do you belong to any clubs or organized social groups?: no Panel score (0-1 are the most socially isolated patients): 2 What type of physical activity do you participate in: none Darlene/Holiness: None Special darlene needs: No Seatbelt use: always Do you feel safe at home: Yes Do you feel safe in your relationship?: Yes Additional Social history: 2005. PCD twin delivery. F - anacephalic Airam. shortly after . Viable twin 'Phu'. 2013. RCS F. Angelita 2021. Pt's Rajeev has been diagnosed with pulmonary sarcoidosis and receives 100% disability from [employer]. Female Reproductive History Menstrual control method: progestin IUCD History History 2 Para Hx # Term Pregnancies 2 Multiple births Hx # Pregnancies Ectopic pregnancies AB induced Hx Number of Living Children 2 AB spontaneous Exam Const General: cooperative, healthy appearing, comfortable and no acute distress Orientation: alert and awake HENMT Head: normal to inspection, normocephalic and atraumatic Eyes Conjunctivae: conjunctivae normal Neck Neck: normal visual inspection, full ROM, trachea midline and supple Resp Effort & Inspection: normal respiratory effort and able to speak in complete sentences Cardio Rate: regular rate Rhythm: regular rhythm Skin General skin exam: no rashes or lesions noted Neuro General: patient alert, patient awake, moves all extremities and no focal motor deficits Cognition: normal cognition Speech: speech normal Gait: normal gait Motor: muscle tone normal throughout Sensory Exam: no sensory deficits noted Extrem General: capillary refill normal Other: Left wrist with diffuse tenderness, worse along the flexor aspect. Neuro, vascular, tendon intact. Normal radial pulse and capillary refill. Positive Tinel's sign, patient unable to participate in Porter sign. There is no bony point tenderness. Limited range of motion secondary to discomfort. No erythema, warmth, ecchymosis. Psych Appearance: grossly normal Mental Status: mental status grossly normal Course Vital Signs Vital signs: Vital Signs Temperature 36.6 C 08/20/22 19:29 Pulse 89 08/20/22 19:29 Respiratory Rate 20 08/20/22 19:29 Blood Pressure 119/62 08/20/22 19:29 Pulse Oximetry 97 08/20/22 19:29 Temperature 36.6 C 08/20/22 19:29 Temperature Source Temporal Artery Scan 08/20/22 19:29 Pulse 89 08/20/22 19:29 Respiratory Rate 20 08/20/22 19:29 Respiratory Effort Non-Labored 08/20/22 19:33 Blood Pressure 119/62 08/20/22 19:29 Blood Pressure Position Sitting 08/20/22 19:29 Pulse Oximetry 97 08/20/22 19:29 Oxygen Delivery Method Room Air 08/20/22 19:29 Oxygen Flow Rate 0 08/20/22 19:29 Pain Level 5 08/20/22 19:36
--- NOTE | 2022-08-20 20:21 | DI.VRAD_ITS ---
PROCEDURE INFORMATION: Exam: XR Left Wrist Exam date and time: 08/20/2022 8:09 PM Age: 42 years old Clinical indication: Left; Patient HX: L wrist pain increasing, no known trauma, TECHNIQUE: Imaging protocol: Radiologic exam of the Left wrist. Views: 3 or more views. COMPARISON: [place] WHOLE BODY BONE SCAN 01/25/2018 12:13 PM FINDINGS: Bones/joints: Normal. Soft tissues: Normal. IMPRESSION: No acute findings. Dictated and Authenticated by: Mason Powell MD. Ordering:BEBE Randle MD
[2022-08-20 20:57] VITALS: BP 106/63; PULSE 83; RESP 18; TEMP 37; O2SAT 97
== END 2022-08-20 20:59 | disposition home or self-care (01) ==
PROVIDERS: Emergency Provider Physician Assistant; PCP Nurse Practitioner Family
DX: M25.532 Pain in left wrist (principal)
CPT/HCPCS: 99283; 73110; 99282

== ENCOUNTER 2023-02-16 01:54 | Outpatient (CLI) | payer OTHER, SELFPAY ==
[2023-02-16 12:32] LABS: Abs Immature Grans 0.06 10^3/uL (0.0-0.06); Absolute Basophil Count 0.08 10^3/uL (0.0-0.2); Absolute Eosinophil Count 0.24 10^3/uL (0.0-0.7); Absolute Lymphocyte Count 2.29 10^3/uL (1.2-3.4); Absolute Monocyte Count 0.43 10^3/uL (0.1-0.8); Absolute Neutrophil Count 7.87 10^3/uL (1.2-6.7); Basophils % 0.7; Eosinophils % 2.2; HCT 37.2 % (36.0-46.0); HGB 12.5 g/dL (11.2-15.7); Immature Grans % 0.5; Lymphocytes % 20.9; MCH 32.9 pg (27.0-33.0); MCHC 33.6 % (32.0-36.0); MCV 98 fL (80-95); MPV 10.2 fL (8.0-11.0); Monocytes % 3.9; Neutrophils % 71.8; Platelet Count 270 10^3/uL (130-400); RDW 17.3 % (11.7-14.6); RDW-SD 61.9 fL; WBC 10.96 10^3/uL (4.4-10.8)
[2023-02-16 13:15] LABS: ALT 26 U/L (14-59); AST 27 U/L (15-37); Albumin 3.8 g/dL (3.4-5.0); Alkaline Phosphatase 71 U/L (46-116); Anion Gap 8.5 mmol/L (3-11); BUN 8 mg/dL (7-18); Bilirubin, Total 0.7 mg/dL (0.2-1.0); CO2 26.5 mmol/L (21.0-32.0); CREATININE 0.7 mg/dL (0.55-1.02); Calcium 8.9 mg/dL (8.5-10.1); Chloride 106 mmol/L (98-107); Estimated GFR 112.05 (mL/min/1.73m2); Glucose 91 mg/dL (74-106); Potassium 4.7 mmol/L (3.5-5.1); Sodium 141 mmol/L (136-145); Total Protein 7.3 g/dL (6.4-8.2); Vitamin B12 428 pg/mL (193-986)
== END 2023-02-16 01:55 | disposition home or self-care (01) ==
LOC: LOS 01:54
PROVIDERS: PCP Nurse Practitioner Family; Visit Provider Nurse Practitioner Family
DX: Z00.00 Encounter for general adult medical examination without abnormal findings (principal); D53.9 Nutritional anemia, unspecified; F41.1 Generalized anxiety disorder; F17.210 Nicotine dependence, cigarettes, uncomplicated; F42.8 Other obsessive-compulsive disorder
CPT/HCPCS: 36415; 80053; 82607; 85025

== ENCOUNTER → 2023-03-09 00:07 | Outpatient (CLI) | payer OTHER, SELFPAY ==
--- NOTE | 2023-03-09 06:15 | DI.MAMMO_ITS ---
Exam(s) MAMMO SCREENING EXAM: MAMMO SCREENING CLINICAL HISTORY: screening,Z12.39 TECHNIQUE: Bilateral full field digital CC and MLO mammographic images were obtained with 3D tomosyn thesis and utilizing computer aided detection (CAD). COMPARISON: Available for comparison. FINDINGS: Masses/Architectural Distortion: There is a 5 mm nodule in the outer aspect of the retroareolar regio n of the right breast, best appreciated on the craniocaudad view. There is a 6 mm nodule posterior t o the nipple in the central right breast on the craniocaudad view. These both lie approximately 4-1/ 2 cm from the nipple. Microcalcifications: No suspicious pleomorphic-type are seen. Skin Thickening/Nipple Retraction: None. IMPRESSION: 1. Right breast nodules as described above. 2. Further evaluation with spot compression views and a complete right breast ultrasound is recommend ed. BI-RADS Category 0 - Assessment Incomplete: Need additional imaging evaluation Breast Density - Category B - Scattered areas of fibroglandular density Breast density category C or D implies that the patient has dense breast tissue. Dense breast tissue is very common and is not abnormal but dense breast tissue can make it harder to find cancer on a ma mmogram. Also, dense breast tissue may increase their breast cancer risk. This information about the result of the mammogram report was provided to the patient to raise their awareness. Use this report when you speak with the patient about their risks for breast cancer, which includes their family hist ory. At that time, you may recommend for more screening tests (Ultrasound or MRI) as they might be us eful based on their risk. A negative radiographic report should not delay biopsy if a dominant or clinically suspicious mass is present. Up to ten percent of cancers are not identified on mammography. A negative report may reinforce clinical impression. Adenosis and dense breasts may obscure an underlying neoplasm. False positive reports average 6 to 10%. Patient will receive a letter notifying them of these results.
== END ==
PROVIDERS: PCP Nurse Practitioner Family; Visit Provider Nurse Practitioner Family
DX: Z12.31 Encounter for screening mammogram for malignant neoplasm of breast (principal)
CPT/HCPCS: 77063; 77067

== ENCOUNTER → 2023-03-16 01:06 | Outpatient (CLI) | payer OTHER, SELFPAY ==
--- NOTE | 2023-03-16 | DI.MAMMO_ITS ---
Exam(s) MAMMO SCREEN CALL BACK UNI EXAM: MAMMO SCREEN CALL BACK UNI CLINICAL HISTORY: F/U MAMMO, RT BREAST NODULES TECHNIQUE: Spot compression views with tomographic imaging were performed. COMPARISON: 09 March 2023 which was a baseline exam. FINDINGS: No suspicious masses or suspicious microcalcifications are seen. No persistent suspicious abnormality is seen on the additional views performed. IMPRESSION: BI-RADS Category 1, Negative Yearly screening mammography is recommended. Breast Density - Category B, scattered fibroglandular densities.
== END ==
PROVIDERS: PCP Nurse Practitioner Family; Visit Provider Nurse Practitioner Family
DX: Z12.31 Encounter for screening mammogram for malignant neoplasm of breast (principal); R92.8 Other abnormal and inconclusive findings on diagnostic imaging of breast
CPT/HCPCS: 77063; 77067

== ENCOUNTER 2024-05-13 15:18 | Outpatient (CLI) | payer OTHER, SELFPAY ==
--- NOTE | 2024-05-13 14:30 | DI.RAD_ITS ---
Exam(s) XR KNEE LT 3V AP,LAT,BRANDY EXAM: XR KNEE LT 3V AP,LAT,BRANDY CLINICAL HISTORY: LEFT ANKLE PAIN. TECHNIQUE: 2D digital imaging was performed. COMPARISON: No exams were available for comparison FINDINGS: 3 views No evidence of fracture or joint effusion. No joint space narrowing. Bone density normal. No osseo us lesions. No patellar displacement. IMPRESSION: No significant radiographic findings in the left knee. DATA REPOSITORY: RADIATION DOSE DELIVERED:
--- NOTE | 2024-05-13 14:30 | DI.RAD_ITS ---
Exam(s) XR ANKLE LT COMPLETE EXAM: XR ANKLE LT COMPLETE CLINICAL HISTORY: LEFT KNEE PAIN. TECHNIQUE: 2D digital imaging was performed. COMPARISON: No exams were available for comparison FINDINGS: 3 views No evidence of fracture or widening the ankle mortise. Talar dome unremarkable. Bone density normal . No osseous lesions. No degenerative changes. No tarsal coalition evident. Bone density normal. No inferior calcaneal spur. IMPRESSION: No significant osseous findings in the left ankle. DATA REPOSITORY: RADIATION DOSE DELIVERED:
== END 2024-05-13 15:19 | disposition home or self-care (01) ==
LOC: DIORS 15:18
PROVIDERS: PCP Nurse Practitioner Family; Visit Provider Student in an Organized Health Care Education/Training Program
DX: M25.572 Pain in left ankle and joints of left foot (principal); M25.562 Pain in left knee
CPT/HCPCS: 73562; 73610

== ENCOUNTER 2024-09-05 00:41 | Outpatient (CLI) | payer OTHER, SELFPAY ==
[2024-09-05 15:04] LABS: Abs Immature Grans 0.08 10^3/uL (0.0-0.06); Absolute Monocyte Count 0.59 10^3/uL (0.1-0.8); Absolute Neutrophil Count 9.15 10^3/uL (1.2-6.7); Basophils % 0.4 %; Eosinophils % 2.2 %; HCT 35.9 % (36.0-46.0); HGB 12.4 g/dL (11.2-15.7); Immature Grans % 0.6 %; Lymphocytes % 25.6 %; MCH 32.6 pg (27.0-33.0); MCHC 34.5 % (32.0-36.0); MCV 95 fL (80-95); MPV 9.6 fL (8.0-11.0); Monocytes % 4.3 %; Neutrophils % 66.9 %; Platelet Count 260 10^3/uL (130-400); RDW 19.4 % (11.7-14.6); RDW-SD 62.7 fL; WBC 13.68 10^3/uL (4.4-10.8)
[2024-09-05 15:06] LABS: Absolute Basophil Count 0.05 10^3/uL (0.0-0.2)
[2024-09-05 15:22] LABS: Hemoglobin A1C < 4.5 % (<5.7)
[2024-09-05 16:04] LABS: ALT 25 U/L (14-59); AST 14 U/L (15-37); Albumin 4.2 g/dL (3.4-5.0); Alkaline Phosphatase 81 U/L (46-116); Anion Gap 9.1 mmol/L (3-11); BUN 10 mg/dL (7-18); Bilirubin, Total 0.95 mg/dL (0.2-1.0); CO2 26.9 mmol/L (21.0-32.0); CREATININE 0.9 mg/dL (0.55-1.02); Calcium 9.1 mg/dL (8.5-10.1); Chloride 105 mmol/L (98-107); Cholesterol 170 mg/dL (<200); Estimated GFR 81.86 (mL/min/1.73m2); Glucose 142 mg/dL (74-106); HDL Cholesterol 36 mg/dL (40-60); Potassium 3.6 mmol/L (3.5-5.1); Sodium 141 mmol/L (136-145); TSH (W/Ref FT4) 2.52 uIU/mL (0.36-3.74); Total Protein 7.7 g/dL (6.4-8.2); Triglyceride 629 mg/dL (<150); Vitamin B12 461 pg/mL (193-986)
[2024-09-05 16:15] LABS: LDL CHOLESTEROL 83 mg/dL (<100)
[2024-09-07 09:27] LABS: HIV-1/2 Ag & Ab Screen Negative (Negative)
[2024-09-08 10:17] LABS: Hepatitis C Ab w Rflx HCV PCR Negative (Negative)
[2024-09-08 10:29] LABS: HBs Antibody, Quant <3.1 mIU/mL (See Note); Hep B Surface Ab Negative (See Note); Hepatitis B Core Antibody Negative (Negative); Hepatitis B Surface Antigen Negative (Negative)
== END 2024-09-05 00:42 | disposition home or self-care (01) ==
PROVIDERS: PCP Nurse Practitioner Family; Visit Provider Nurse Practitioner Family
DX: Z00.00 Encounter for general adult medical examination without abnormal findings (principal); D53.9 Nutritional anemia, unspecified; Z11.59 Encounter for screening for other viral diseases; R16.1 Splenomegaly, not elsewhere classified; Z11.4 Encounter for screening for human immunodeficiency virus [HIV]
CPT/HCPCS: 36415; 80053; 80061; 83721; 86704; 86706; 86803; 87340; 87389; 82607; 83036; 84443; 85025

== ENCOUNTER 2024-09-05 07:47 | Outpatient (CLI) | payer OTHER, SELFPAY ==
--- NOTE | 2024-09-05 15:36 | DI.MAMMO_ITS ---
Exam(s) MAMMO SCREENING EXAM: MAMMO SCREENING CLINICAL HISTORY: screening,z12.39 TECHNIQUE: Bilateral full field digital CC and MLO mammographic images were obtained with 3D tomosyn thesis and utilizing computer aided detection (CAD). COMPARISON: Available for comparison. FINDINGS: Masses/Architectural Distortion: There has been no change in appearance of the nodule at the 12 o'nae ck position of the right breast. No new nodules are seen. There are no areas of architectural disto rtion. Microcalcifications: No suspicious pleomorphic-type are seen. Skin Thickening/Nipple Retraction: None. IMPRESSION: 1. No significant interval change with no specific features of malignancy noted. 2. Unless there is more urgent need, screening mammography is recommended, as per [employer] [employer] guidelines. BI-RADS Category 2 - Benign Findings Breast Density - Category B - Scattered areas of fibroglandular density Breast density category C or D implies that the patient has dense breast tissue. Dense breast tissue is very common and is not abnormal but dense breast tissue can make it harder to find cancer on a ma mmogram. Also, dense breast tissue may increase their breast cancer risk. This information about the result of the mammogram report was provided to the patient to raise their awareness. Use this report when you speak with the patient about their risks for breast cancer, which includes their family hist ory. At that time, you may recommend for more screening tests (Ultrasound or MRI) as they might be us eful based on their risk. A negative radiographic report should not delay biopsy if a dominant or clinically suspicious mass is present. Up to ten percent of cancers are not identified on mammography. A negative report may reinforce clinical impression. Adenosis and dense breasts may obscure an underlying neoplasm. False positive reports average 6 to 10%. Patient will receive a letter notifying them of these results.
== END 2024-09-05 08:07 ==
LOC: DI 07:47
PROVIDERS: PCP Nurse Practitioner Family; Visit Provider Nurse Practitioner Family
DX: Z12.31 Encounter for screening mammogram for malignant neoplasm of breast (principal); R92.323 Mammographic fibroglandular density, bilateral breasts; D24.1 Benign neoplasm of right breast
CPT/HCPCS: 77063; 77067

== ENCOUNTER 2024-12-04 08:29 | Emergency (ER) | payer OTHER, SELFPAY ==
[2024-12-04 08:29] VITALS: BP 139/83; PULSE 125; RESP 18; TEMP 37.5; O2SAT 93
[2024-12-04 08:36] VITALS: BP 139/83; PULSE 125; RESP 18; TEMP 37.5; O2SAT 93
--- NOTE | 2024-12-04 09:01 | W.ED.GENAD ---
Discharge Plan Disposition Patient Disposition: Home Condition: Good Discharge Details Clinical Impression: URI (upper respiratory infection), Eustachian tube dysfunction, Tachycardia Primary Care Provider: Ledy Thompson ED Provider: Savi Ware Home Meds and New Rx's Prescriptions: Continued clotrimazole-betamethasone 1-0.05 % cream 1 applic topical BID 10 Days Qty: 15 2RF sertraline 100 mg tablet 100 mg PO DAILY Qty: 90 3RF nystatin 100,000 unit/gram powder 1 applic topical BID Qty: 60 0RF Mirena 20 mcg/24 hours (5 yrs) 52 mg intrauterine device 1 device IY ONCE Patient Comments: Inserted 09/21/15 Discharge Instructions Instructions: Upper respiratory infection in adults - Discharge instructions Additional Instructions: As we discussed, your chest x-ray was reassuring, no evidence of pneumonia. You are negative for flu and COVID. I am primarily concerned that you have a viral illness. Your heart rate was elevated here and I believe this may be associated with dehydration. As we discussed, you prefer to rehydrate at home which I feel is appropriate we will please continue to monitor your heart rate. This can also go up if you develop fever. Please continue use Tylenol and ibuprofen as needed for fever or discomfort, take as directed on the packaging. If you develop any new or worsening symptoms please seek care emergently once again. Otherwise, please follow-up with your primary care in 1 to 2 weeks for reevaluation. Referrals: Ledy Thompson, [employer] PL[employer] ANALYST [Primary Care Provider] - Discharge Data Discharge Date/Time-TO BE ENTERED AT DEPARTURE: 12/04/24 10:52 HPI General Date/Time Provider Initiated Documentation: 12/04/24 09:01. Limitations to Documentation: no limitations. Information obtained by: patient, family () and RN notes reviewed. History of Present Illness 44 year old F presents to the emergency department with the chief complaint of cough, congestion, SOB, fatigue, right ear pain, described as moderate, Patient started experiencing this day(s) (3) No relieving factors improve symptom(s), No exacerbating factors reported . Patient notes cough, diaphoresis, fever/chills, loss of appetite, malaise and shortness of breath; denies confusion, chest pain, headaches, nausea/vomiting, rash and weakness. Patient did receive the following treatments prior to arrival, none Related Data Home Medications ?Medication ?Instructions ?Recorded ?Confirmed levonorgestrel 21 mcg/24 hr (up to 1 device intrauterine ONCE 12/23/18 12/04/24 8 years) 52 mg intrauterine device (Mirena) clotrimazole-betamethasone 1 1 applic topical BID 10 days #15 05/15/24 12/04/24 %-0.05 % topical cream grams sertraline 100 mg tablet 100 mg PO DAILY #90 tabs 05/15/24 12/04/24 nystatin 100,000 unit/gram topical 1 applic topical BID #60 grams 05/20/24 12/04/24 powder Previous Rx's ?Medication ?Instructions ?Recorded clotrimazole-betamethasone 1 1 applic topical BID 10 days #15 05/15/24 %-0.05 % topical cream grams sertraline 100 mg tablet 100 mg PO DAILY #90 tabs 05/15/24 nystatin 100,000 unit/gram topical 1 applic topical BID #60 grams 05/20/24 powder Allergies Allergy/AdvReac Type Severity Reaction Status Date / Time amoxicillin Allergy vomiting/hi Unverified 12/04/24 08:34 ves Penicillins Allergy familial Unverified 12/04/24 08:34 reaction hydrocodone bitartrate (From AdvReac Severe Nausea Unverified 12/04/24 08:34 Vicodin) bupropion HCl (From AdvReac Unknown Other (See Unverified 12/04/24 08:34 Wellbutrin) Comment) General Stated Complaint: SOB SHANA: 3 Review of Systems Constitutional Constitutional: Reports as per HPI and Denies headache(s) Eyes Eyes: Reports as per HPI, Denies eye discharge and Denies irritation ENT Ears, Nose, Mouth, and Throat: Reports as per HPI and Denies headache(s) Cardiovascular Cardiovascular: Reports as per HPI and Denies chest pain Respiratory Respiratory: Reports as per HPI Gastrointestinal Gastrointestinal: Reports as per HPI, Denies abdominal pain, Denies nausea and Denies vomiting Integumentary/Breasts Skin/Breast: Reports as per HPI and Denies rash Neurologic Neurologic: Reports as per HPI and Denies headache(s) Exam Const General: cooperative, healthy appearing, comfortable, no acute distress, well developed and well groomed Nutritional Appearance: average body habitus and well nourished Orientation: alert and awake [facility] Head: normal to inspection, normocephalic and atraumatic Ears: hearing grossly normal bilaterally, external ears normal, TM's abnormal bilaterally (retraction on the right) and TM normal on the left General nose exam: external nose normal and nares normal Face and sinus: normal facial exam, sinuses nontender and face symmetric Mouth: oral mucosae normal, lip normal, tongue normal, oropharynx normal and moist mucous membranes Teeth and gingiva: dentition normal Throat: posterior oropharynx normal, tonsils normal and uvula midline Eyes General: appearance normal, both eyes and all related structures Neck Neck: normal visual inspection, full ROM, no lymphadenopathy and no meningeal signs Resp Effort & Inspection: normal respiratory effort, able to speak in complete sentences, no respiratory distress and other (dry cough) Auscultation: clear to auscultation bilaterally, no rales, no rhonchi and no wheezes Cardio Rate: regular rate Rhythm: regular rhythm Heart Sounds: S1 normal and S2 normal Skin General skin exam: no rashes or lesions noted Neuro General: patient alert and patient awake Cognition: normal cognition Speech: speech normal Gait: normal gait Course Vital Signs Vital signs: Vital Signs Temperature 37.5 C 12/04/24 08:29 Pulse 125 H 12/04/24 08:29 Respiratory Rate 18 12/04/24 08:29 Blood Pressure 139/83 12/04/24 08:29 Pulse Oximetry 93 12/04/24 08:29 Temperature 37.5 C 12/04/24 08:36 Temperature Source Temporal Artery Scan 12/04/24 08:36 Pulse 125 H 12/04/24 08:36 Respiratory Rate 18 12/04/24 08:36 Blood Pressure 139/83 12/04/24 08:36 Blood Pressure Position Sitting 12/04/24 08:36 Pulse Oximetry 93 12/04/24 08:36 Oxygen Delivery Method Room Air 12/04/24 08:36 Oxygen Flow Rate 0 12/04/24 08:36 Pain Level 5 12/04/24 08:36 Medical Decision Making Patient is a pleasant 44-year-old female past medical history of depression, active smoker using vapes, presenting with chief complaint of 3 days of URI and bodyaches. She reports that she initially began with headache and right ear pain, developed congestion, sore throat and cough. Reports some mild diarrhea, nonbloody. Denies any vomiting. Denies any chest pain. No recent travel but is planning to go on a trip next week. States she has been very fatigued slightly short of breath, particularly with exertion. On exam, patient appears nontoxic. She is tachycardic with a heart rate in the 120s but her pressure is within normal limits. She appears nontoxic. Her lungs are clear, normal cardiac exam aside from tachycardia. She does have retraction of the right tympanic membrane concerning for eustachian tube dysfunction likely from postnasal drip which patient I discussed. Chest x-ray was obtained to evaluate for potential pneumonia. With the sore throat, congestion, right ear pain, findings similar emergent like ACS or PE unlikely. Patient is tachycardic but she does appear dehydrated and reports that she has not been drinking very much as she has been very fatigued with the acute illness. Patient also had mild nausea as well as diarrhea which goes along with viral etiology rather than something like ACS or pulmonary emboli. She not having any exertional chest pain and has no history of cardiac disease. Does not feel that further evaluation with D-dimer, CT is warranted at this point. I did obtain a chest x-ray to evaluate for any potential pneumonia which was reviewed by myself and radiologist, no acute findings appreciated. Patient was negative for clue and No acute abnormality per radiologist, imaging was reviewed by myself as well. Patient was negative for flu and COVID. I discussed these findings with the patient. She did receive Tylenol as patient did feel warm when she first came in. She continues to be tachycardic in the 120s. On review her baseline heart rate is normally in the 90s. Patient I discussed this. As she has primarily had upper respiratory symptoms, ear pain congestion as well as fever and bodyaches, it sounds primarily viral in nature. Not see indication of bacterial infection. Patient does not acute appear acutely septic. Primarily concerned that the tachycardia is associated with dehydration as the patient reports she has not been drinking much fluid despite having a cough and a fever. Patient I did discuss IV hydration versus oral versus discharge to home with continued management of her hydration status at home. Patient does live locally and would prefer to be able to do so, comfort of her own home. She does have a monitor at home and is able to continue to monitor her heart rate and oxygen. Encouraged supportive care. Return precautions were discussed. Encourage follow-up with primary care. All of her questions and concerns were addressed and she is in agreement this plan. This documentation was generated using [email or web address] system, please disregard any oddities of phrase or misspellings. Quality:[facility] Health Related Social Needs: No Data to Display PFSH All Active Problems (Updated 12/04/24 @ 10:47 by LC Schultz) Tachycardia (Acute) Eustachian tube dysfunction (Acute) URI (upper respiratory infection) (Acute) Non-insertional Achilles tendinopathy (Acute) Tendinitis of left quadriceps tendon (Acute) Generalized anxiety disorder (Chronic) Obsessive-compulsive disorder, unspecified (Chronic) Macrocytic anemia (Chronic) Normal bone marrow biopsy 01/2018 at [facility]. Needs chronic B12 replacement. Metabolic dysfunction-associated steatotic liver disease (MASLD) (Chronic) Migraine headache with aura (Chronic) Splenomegaly (Chronic) Incidental finding on imaging, asymptomatic, [facility] hematology consulted 2017 and advised monitoring Obesity (BMI 30-39.9) (Chronic) Medical History (Updated 12/04/24 @ 10:47 by LC Schultz) Former cigarette smoker 13pack/yr hx. Quit 2022 Abnormal Papanicolaou smear of cervix with positive human papilloma virus (HPV) test 2012 ASCUS + HPV. Colpo directed bx CIN1. 05/2014 Colpo CIN1. 2014 ASCUS + HPV. 09/3014 colpo directed bx - benign. 08/2015 Nl Pap. + HR HPV. 10/20/16 colpo directed bx NING 1. 2017. Nl Pap/Neg HPV. Depressive disorder Vitamin B 12 deficiency Surgical History S/P cholecystectomy (11/28/16) History of section History of hysteroscopy (~2010) For IUD retrieval Family History Mother Hyperlipidemia Hypertension Cervical cancer Father Depression Brother Hyperlipidemia Stroke Hypertension Brother No problems noted. Son Asthma Daughter No problems noted. Maternal Grandfather Alcohol abuse Stroke Heart disease Maternal Grandmother Colon cancer Alcohol abuse Hypertension Hyperlipidemia Type 2 diabetes mellitus Paternal Grandfather Alcohol abuse Paternal Grandmother Stroke Neoplasm Unknown type Social History (Updated 05/20/24 @ 17:20 by ROXANA Godinez Smoking/Tobacco Use Status: Current every day Tobacco Type: e-cigarettes Tobacco: How many years used: 27 Quit status: considering quitting Smoking risk assessment performed?: Yes Alcohol Intake: current Alcohol Intake frequency: holidays/special occasions only Alcohol type: wine Drug use: Never Substance use type: does not use Adopted: No Caregiver/Support person: No Household members: spouse and children Housing: house Number of Children: 2 number of grandchildren: 0 Communication Needs: None Education Level: college Details: 1 year Do you need help understanding health information?: Never current occupation: [employer], [employer] Pets and animals: Yes Pets and animals: cat(s) and dog(s) Sexually active: Yes Do you think of yourself as: straight/heterosexual Current gender identity: female What is your relationship status?: How often do you talk on the phone with friends or family?: three or more times per week How often do you get together with friends or relatives?: once per week How often do you attend latter day or advent services?: 1-3 times per year Do you belong to any clubs or organized social groups?: no Panel score (0-1 are the most socially isolated patients): 2 What type of physical activity do you participate in: none Frequency: does not exercise Darlene/Islam: None Special darlene needs: No Seatbelt use: always Helmet use: Yes Helmet use: always Drive intox 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 PCD twin delivery. F - anacephalic Airam. shortly after . Viable twin 'Phu'. 2013. RCS F. Angelita 2021. Pt's Rajeev has been diagnosed with pulmonary sarcoidosis and receives 100% disability from [employer]. Female Reproductive History Menstrual control method: progestin IUCD History History 2 Para Hx # Term Pregnancies 2 Multiple births Hx # Pregnancies Ectopic pregnancies AB induced Hx Number of Living Children 2 AB spontaneous
--- NOTE | 2024-12-04 09:15 | DI.RAD_ITS ---
Exam(s) XR CHEST 2V PA LATERAL EXAM: XR CHEST 2V PA LATERAL CLINICAL HISTORY: cough TECHNIQUE: 2D digital imaging was performed. Two views. COMPARISON: No exams were available for comparison FINDINGS: HEART: Normal size. Aorta: Not dilated. PULMONARY VASCULATURE: Normal. MEDIASTINUM: Unremarkable. LUNGS: Clear. PLEURAL SPACE: No pleural effusion or pneumothorax. BONE:Unremarkable for age. SOFT TISSUES: Unremarkable. IMPRESSION: No acute abnormality. DATA REPOSITORY: RADIATION DOSE DELIVERED:
[2024-12-04] MEDS: Acetaminophen 500 MG TAB 1000 MG PO (09:20)
[2024-12-04 09:52] LABS: COVID-19 PCR Negative (Negative); Influenza A PCR Negative (Negative); Influenza B PCR Negative (Negative); RSV PCR Negative (Negative)
[2024-12-04 10:10] LABS: Source Nasopharynx
[2024-12-04 10:11] VITALS: BP 111/70; PULSE 124; RESP 24; O2SAT 95
[2024-12-04 10:45] VITALS: BP 119/85; PULSE 121; RESP 24; O2SAT 95
== END 2024-12-04 10:52 | disposition home or self-care (01) ==
PROVIDERS: Emergency Provider Physician Assistant; PCP Nurse Practitioner Family
DX: J06.9 Acute upper respiratory infection, unspecified (principal); R00.0 Tachycardia, unspecified; H69.91 Unspecified Eustachian tube disorder, right ear
CPT/HCPCS: 99283 ×2; 87637; 71046

== ENCOUNTER → 2025-07-03 13:38 | Outpatient (CLI) | payer OTHER, SELFPAY ==
--- NOTE | 2025-07-03 14:48 | DI.RAD_ITS ---
Exam(s) XR PELVIS AP EXAM: XR PELVIS AP CLINICAL HISTORY: fall,W19.xxxa. TECHNIQUE: 2D digital imaging was performed. Single AP view. COMPARISON: No exams were available for comparison FINDINGS: BONES: No acute fracture is present. No bony destructive lesion is seen. JOINTS: No dislocation present. No joint space narrowing is present. SOFT TISSUE: Normal. IUD. IMPRESSION: No acute abnormality. DATA REPOSITORY: RADIATION DOSE DELIVERED:
--- NOTE | 2025-07-03 14:50 | DI.RAD_ITS ---
Exam(s) XR LUMBAR SPINE COMPLETE EXAM: XR LUMBAR SPINE COMPLETE CLINICAL HISTORY: fall,W19.xxxa. TECHNIQUE: 2D digital imaging was performed. Five views. COMPARISON: No exams were available for comparison FINDINGS: BONES: No fracture or destructive lesion. Vertebral body heights are maintained. No facet hypertrophy identified . DISKS: Intervertebral disc spaces are maintained. ALIGNMENT: Lumbar spinal alignment is within normal limits. SOFT TISSUE: Normal. Right upper quadrant surgical clips. IMPRESSION: Unremarkable radiographs of the lumbar spine. DATA REPOSITORY: RADIATION DOSE DELIVERED:
== END ==
PROVIDERS: PCP Nurse Practitioner Family; Visit Provider Nurse Practitioner Family
DX: W19.XXXA Unspecified fall, initial encounter (principal); M54.9 Dorsalgia, unspecified
CPT/HCPCS: 72110; 72170